=== PATIENT | male | born 1960 | race Caucasian/White ===

== ENCOUNTER → 2016-11-25 | Outpatient (CLI) | payer OTHER ==
[~2016-11-25] MED LIST: ATV/1 PO; ATV5 PO; CALC-354 PO; CALC625T PO; CAPE1TAB3 PO; CARB200T PO; CARB200T3 PO; CHEMO INJ; CHOL100010 PO; CHOL200010 PO; CLIN1LOT5 TOP; CMD3 PO; CMD4 PO; CMD6 PO; DOCU-94 PO; DOXY100T PO; HYDR-5688 PO; KPP/1000 PO; LACT10SO17 PO; LAMO200T PO; LAMO200T38 PO; LAMO25TA PO; LEVE500T13 PO; LEVE500T26 PO; LORA-741 PO; MORP20SO PO; MRPL PO; MULT-506 PO; OPTIRAY 320 IV PRN; POTA10LI12 PO; PROC1TAB5 PO; PTDOPS OP; PTDOPS OPB; RISP1TAB68 PO; RISP2TAB22 PO; RISP2TAB3 PO; SENN-58 PO; SENN-61 PO; SENN1TAB77 PO; SENN8.6T36 PO; VITACAP37; WARF2TAB PO; ZONI100C2 PO; ZONI100C39 PO
--- NOTE | 2016-11-25 13:44 | DIAGNOSTIC IMAGING REPORT ---
CT OF THE CHEST WITH IV CONTRAST CLINICAL HISTORY: Colon carcinoma. COMPARISON STUDY: 06/23/2016 TECHNIQUE: Following the IV administration of mL of Optiray-320, CT of the thorax was performed from the thoracic inlet to the lung bases. Images are reviewed in the axial, sagittal, and coronal planes. IV contrast was administered without complication. CT DOSE: 1362.91 mGycm FINDINGS: Thyroid: Imaged portions of the thyroid gland are normal in appearance. Thoracic aorta: There is a left aortic arch with an apparent right subclavian artery. Pulmonary vasculature: The pulmonary trunk is normal in caliber. There are no central filling defects identified to suggest pulmonary embolus. Note that this examination was not protocoled for the evaluation of pulmonary emboli. HEART: The heart is normal in size and configuration, without pericardial effusion. Lungs and pleural spaces: There are very small bilateral pleural effusions right greater than left. There is persistent thickening of the bronchovascular bundles bilaterally. There is bilateral interstitial thickening. There is no lobar consolidation. Mediastinum: Borderline enlarged mediastinal lymph nodes appear slightly smaller than on the preceding study. Shanta: Hilar lymph nodes are at the upper limits of normal in size Axilla: Clear. Upper abdomen: There is a 7 mm right renal calculus. There is bilateral gynecomastia. Skeletal structures: There are no lytic or blastic osseous lesions. IMPRESSION: 1. Persistent thickening of the bronchovascular bundles, and very small bilateral pleural effusions. Bronchovascular bundle thickening is often seen in pulmonary interstitial edema as well as sarcoidosis. It has also been described in pneumonitis, microscopic polyangiitis, and lymphangitic carcinomatosis. 2. Left aortic arch with an apparent right subclavian 3. 7 mm right renal calculus 4. Borderline enlarged mediastinal lymph nodes Electronically signed by: Ulysses Wang M.D. 11/25/2016 1:43 PM Dictated Date/Time: 11/25/2016 1:34 PM
--- NOTE | 2016-11-25 15:25 | DIAGNOSTIC IMAGING REPORT ---
CT OF THE ABDOMEN AND PELVIS WITH CONTRAST CLINICAL HISTORY: Colon cancer. COMPARISON STUDY: CT of the abdomen and pelvis June 23, 2016. TECHNIQUE: Following IV administration of 119 mL of Optiray-320, axial images of the abdomen and pelvis were obtained from the lung bases to the proximal femurs. Images were reviewed in the axial, sagittal, and coronal planes. IV contrast was administered without complication. Oral contrast was administered. FINDINGS: The chest will be reported separately. The liver, spleen, adrenal glands and pancreas are normal. There is no hydronephrosis. There is a 5 mm right renal calculus. A few subcentimeter left renal lesions are too small to characterize but are likely benign. There is no evidence for a bowel obstruction status post right hemicolectomy. A 1.3 cm hypodensity with mild peripheral enhancement superior to the ileocolic anastomosis is likely postsurgical. No enlarged abdominal or pelvic lymph nodes are present. Small mesenteric lymph nodes are noted. These are probably benign. There is a large amount of stool within the colon and rectum. There is a new 1.5 cm partially sclerotic lesion within the left posterior aspect of the T9 vertebral body. There is also a new new area of sclerosis within the S1 vertebral body that measures approximately 2.4 cm. IMPRESSION: 1. Interval development of sclerotic lesions within the T9 and S1 vertebral bodies which are highly suggestive of skeletal metastases. 2. Status post right hemicolectomy. No evidence for bowel obstruction. 1.3 cm hypodensity adjacent to the ileocolic anastomosis is likely postsurgical. 3. Small mesenteric lymph nodes which are likely benign but should be assessed on subsequent exams. 4. Large amount stool within the colon and rectum. Electronically signed by: Darin Maldonado M.D. 11/25/2016 3:23 PM Dictated Date/Time: 11/25/2016 1:36 PM
== END | disposition home or self-care (01) ==
LOC: C.CTS 12:53
PROVIDERS: ATTEND Internal Medicine Hematology & Oncology
DX: C18.4 Malignant neoplasm of transverse colon (principal); M89.9 Disorder of bone, unspecified; I88.0 Nonspecific mesenteric lymphadenitis; K59.00 Constipation, unspecified; R91.8 Other nonspecific abnormal finding of lung field; J90 Pleural effusion, not elsewhere classified; N20.0 Calculus of kidney

== ENCOUNTER 2017-01-04 08:54 | Day surgery (SDC) | payer OTHER ==
[2016-12-23 11:00] VITALS: BMI 21.0
[~2017-01-04] VITALS: Ht 165.1 cm; Wt 59.1 kg
[2017-01-04] VITALS (7 sets, daily range): BP systolic 108–126; BP diastolic 68–85; PULSE 76–86; TEMP 36–36.6; O2SAT 90–98; Ht 165.1 cm; Wt 59.1 kg
--- NOTE | 2017-01-04 08:20 | History and Physical ---
History & Physical Date Jan 04, 2017. History of Present Illness The patient is a 56 year old male with h/o metastatic colon Ca- in need of chemotherapy for access port. Pt sees Dr Jasmine. h/o mental retardation Past Medical/Surgical History Medical Problems: (1) Colon cancer (2) Mental retardation (3) Seizure disorder Surgical Problems: (1) S/P colectomy Additional History Endocrine Disorder: No Kidney Disease: No Allergies Coded Allergies: Ragweed (Verified Allergy, Mild, SEASONAL ALLERGY, 12/23/16) [place] Tree (Verified Allergy, Mild, SEASONAL ALLERGY, 12/23/16) Azithromycin (Verified Allergy, Unknown, INTERACTS WITH TEGRETOL LEVELS, ) Propranolol (Verified Allergy, Unknown, REACTION OF IMMOBILITY, 12/23/16) Home Medications Scheduled Calcium Carbonate-Cholecalcife (Caltrate 600+D), 2 TABS PO QAM Calcium Polycarbophil (Fibercon), 1 CAP PO BID Carbamazepine (Tegretol), 200 MG PO BID Cholecalciferol (Vitamin D), 2,000 INTER.UNIT PO QAM Lamotrigine (Lamictal), 200 MG PO TID Lamotrigine (Lamictal), 25 MG PO AMHS Levetiracetam (Keppra), 1,250 MG PO BID Lorazepam (Ativan *), 0.5 MG PO QD@16 Lorazepam (Ativan), 1 MG PO HS Multivitamin (Multivitamin), 1 TAB PO QAM Olopatadine Hydrochloride (Pataday), 1 DROP OPB DAILY Risperidone (Risperdal), 2 MG PO QAM Risperidone (Risperdal), 1 MG PO HS Sennosides-Docusate Sodium (Yelitza-Colace), 1 TAB PO BID Vitamin E (E-400), 400 UNITS BID Warfarin Sod (Coumadin), 4 MG PO S,T,W,T,SA Warfarin Sod (Coumadin), 6 MG PO M, F Zonisamide (Zonegran), 200 MG PO HS Physical Examination Skin: warm/dry Eyes: sclerae normal Neck: supple Respiratory/Chest: no respiratory distress Cardiovascular: regular rate, rhythm Abdomen / GI: non tender Extremities: normal inspection Neurologic/Psych: alert (pt does not speak much) Diagnosis metastatic colon Ca for port placement Plan of Treatment Access port placement will likely need general anesthesia- LMA
[~2017-01-04 08:54] MED LIST changes: -CAPE1TAB3 PO; -CARB200T3 PO; -CHEMO INJ; -CHOL200010 PO; -CLIN1LOT5 TOP; -CMD3 PO; -DOCU-94 PO; -DOXY100T PO; +FENTANYL CITRATE INJ 50 MCG/1 ML 2 ML VIAL ONE; -HYDR-5688 PO; -KPP/1000 PO; -LACT10SO17 PO; +LACTATED RINGER'S 1000ML 1,000 ML IV SCH; -LAMO200T PO; -LEVE500T13 PO; -LORA-741 PO; +MIDAZOLAM HCL 1 MG/ML 2ML VIAL ONE; -MORP20SO PO; -MRPL PO; -OPTIRAY 320 IV PRN; -POTA10LI12 PO; -PROC1TAB5 PO; -PTDOPS OP; -RISP2TAB22 PO; -SENN-61 PO; -SENN1TAB77 PO; -SENN8.6T36 PO; -WARF2TAB PO; -ZONI100C2 PO
[2017-01-04 09:36] LABS: HEMATOCRIT 38.3 % (42-52); MEAN CELL VOLUME 92.7 fL (80-100); MEAN CORPUSCULAR HEMOGLOBIN 31.2 pg (25-34); MEAN PLATELET VOLUME 9.6 fL (7.4-10.4); PLATELET COUNT 316 K/uL (130-400); RED BLOOD COUNT 4.13 M/uL (4.7-6.1)
[2017-01-04 09:41] LABS: MEAN CORPUSCULAR HGB CONC 33.7 g/dl (32-36)
[2017-01-04 09:57] LABS: INR 1.1 (0.9-1.1); PARTIAL THROMBOPLASTIN RATIO 1.1; PROTHROMBIN TIME (PATIENT) 11.4 SECONDS (9.0-12.0)
[2017-01-04] MEDS ORDERED: LIDOCAINE HCL 1% 20 ML VIAL ONE (10:39)
[2017-01-04] MEDS ORDERED: CEFAZOLIN SOD 1 GM VIAL ONE ×2 (10:39→11:12)
[2017-01-04] MEDS ORDERED: HEPARIN SOD (PORCINE) 1000 UNIT/ML 10 ML VIAL ONE (10:39)
[2017-01-04] MEDS ORDERED: EpHEDrine SULFATE INJ 50 MG/ML AMP ONE (11:12)
[2017-01-04] MEDS ORDERED: LIDOCAINE HCL 2% 2 ML VIAL (20MG/ML) ONE (11:12)
[2017-01-04] MEDS ORDERED: ONDANSETRON INJ 2 MG/ML 2 ML VIAL ONE (11:12)
[2017-01-04] MEDS ORDERED: DEXAMETHASONE SOD INJ 4 MG/ML VIAL ONE (11:12)
[2017-01-04] MEDS ORDERED: SUCCINYLCHOLINE CHLORIDE 20 MG/ML 10 ML VIAL IV ONE (11:12)
[2017-01-04] MEDS ORDERED: PROPOFOL IV EMULSION 10 MG/ML 20 ML VIAL IV ONE ×5 (11:12→11:23)
[2017-01-04] MEDS ORDERED: ROCURONIUM BROMIDE 10 MG/ML 5 ML VIAL ONE (11:12)
[2017-01-04] MEDS ORDERED: ATROPINE SULFATE 0.1 MG/ML 5ML SYR IV PRN (11:30)
[2017-01-04] MEDS ORDERED: EpHEDrine SULFATE INJ 50 MG/ML AMP IV PRN (11:30)
[2017-01-04] MEDS ORDERED: LACTATED RINGER'S 1000ML 1,000 ML IV SCH (11:42)
[2017-01-04] MEDS ORDERED: HYDR-5688 PO (11:45)
[2017-01-04] MEDS ORDERED: HYDROCODONE/ACETAMOPHEN 5/325MG TAB PO PRN ×3 (11:45→12:00)
[2017-01-04] MEDS ORDERED: MoRPHine SULFATE 2 MG/ML CARP IV PRN (11:45)
[2017-01-04] MEDS ORDERED: ONDANSETRON INJ 2 MG/ML 2 ML VIAL IV PRN ×2 (11:45→12:00)
--- NOTE | 2017-01-04 11:47 | Discharge Instructions ---
Discharge Instructions Visit Reason for Visit: Colon Cancer Discharge Discharge Diagnosis / Problem: A-port placement Activity Recommendations Shower/Bathe: tomorrow Anesthesia . Post Anesthesia Instructions: If you have had General Anesthesia or IV Sedation: * Do not drive today. * Resume driving when surgeon permits. * Do not make important decisions or sign legal documents today. * Call surgeon for: 1. Temperature elevations greater than 101 degrees F. 2. Uncontrollable pain. 3. Excessive bleeding. 4. Persistent nausea and vomiting. 5. Medication intolerance (nausea, vomiting or rash). * For nausea and vomiting use only clear liquids such as: tea, soda, bouillon until nausea subsides, then gradually increase diet as tolerated. * If you have any concerns or questions, call your surgeon's office. If physician is unavailable and it is an emergency, call 911 or go to the nearest emergency room. . Instructions / Follow-Up Instructions / Follow-Up Dr. Giraldo's office in 2 weeks for suture removal restart coumadin on Wednesday Diet Recommendations Recommended Home Diet: no limitations Procedures Procedures Performed: Insertion of A-Port Left Sub Clavian Pending Studies Studies pending at discharge: no Medical Emergencies . Who to Call and When: Medical Emergencies: If at any time you feel your situation is an emergency, please call 911 immediately. . Non-Emergent Contact Non-Emergency issues call your: Surgeon Call Non-Emergent contact if: you have a fever, temperature is above 101.5, your pain is not controlled, wound has increased redness . . "Provider Documentation" section prepared by Isaac Kemp.
--- NOTE | 2017-01-04 11:48 | [facility] Post Operative Brief Note ---
Immediate Operative Summary Operative Date Jan 04, 2017. Pre-Operative Diagnosis Metastatic Colon Cancer Post-Operative Diagnosis Same as preoperative. Procedure(s) Performed Insertion of A-Port Left Sub Clavian Surgeon Licensed Psychologist Surgeon(s) none Estimated Blood Loss 5 cc Findings placed via Lt subclavian vein Specimens None per surgeon Anesthesia gen Complication(s) None Disposition Recovery Room / PACU
--- NOTE | 2017-01-04 12:11 | OPERATIVE REPORT ---
DATE OF OPERATION: 01/04/2017 NAME OF OPERATION: Port placement. PREOPERATIVE DIAGNOSIS: Metastatic colon cancer. POSTOPERATIVE DIAGNOSIS: Same. STAFF SURGEON: Dr. Fabián Giraldo. ANESTHESIA: General anesthetic. DESCRIPTION OF PROCEDURE: The patient was brought into the operating room and placed on the operating table in the supine position. After appropriate general anesthetic, a roll was placed between shoulders. His chest was prepped and draped in the usual fashion. 0.5% plain Marcaine was used to anesthetize the skin and scrubbed the subcutaneous tissue. Incision made over the deltopectoral groove on the left side, carrying dissection down and identifying a very small cephalic vein. I was unable to pass the catheter into the subclavian vein from this. Therefore, the cephalic vein was ligated. The patient was placed in Trendelenburg position and then using a puncture technique, the left subclavian vein was localized. A wire passed under fluoroscopy. The dilator and an introducer passed over the wire under fluoroscopy. The dilator and wire removed. Catheter passed through the introducer down into the proximal superior vena cava and then the catheter was aspirated and flushed with heparinized solution. A pocket was fashioned in the chest wall. The port was attached to the catheter, placed into the pocket and secured to the chest wall using 3-0 Prolene suture. The port had been aspirated and flushed with heparinized solution. Subcutaneous tissue was reapproximated using 2-0 chromic catgut suture and then the skin reapproximated using 4-0 nylon suture. The patient was transferred to recovery room in stable condition. I attest to the content of the Intraoperative Record and any orders documented therein. Any exceptio ns are noted below.
--- NOTE | 2017-01-04 12:32 | DIAGNOSTIC IMAGING REPORT ---
CHEST ONE VIEW PORTABLE CLINICAL HISTORY: port placement COMPARISON STUDY: 08/26/2016, CT scan of the chest dated 11/25/2016 FINDINGS: The heart is at the upper limits of normal in size. There are progressive bilateral interstitial pulmonary opacities, consistent with a pulmonary edema pattern. There is been interval placement of a left sided A-Port catheter. The tip projects at the superior vena cava. There is no pneumothorax. More focal left basilar airspace opacities, likely reflect focal edema.[ IMPRESSION: Progressive interstitial pulmonary edema pattern. This finding was described on the prior CT scan dated 11/25/2016. Diagnostic considerations remain similar. Electronically signed by: Ulysses Wang M.D. 01/04/2017 12:31 PM Dictated Date/Time: 01/04/2017 12:28 PM
--- NOTE | 2017-01-04 13:25 | Anesthesiology Progress Note ---
Anesthesia Post Op Note Date & Time Jan 04, 2017 at 13:25 Vital Signs Pain Intensity: 0 Vital Signs Past 12 Hours Date Time Temp Pulse Resp B/P Pulse Ox O2 Delivery O2 Flow Rate FiO2 01/04/17 13:15 96 Nasal Cannula 1 01/04/17 13:00 36.6 86 18 114/79 92 Nasal Cannula 2 01/04/17 12:32 36.2 82 18 126/75 98 Nasal Cannula 2 01/04/17 12:25 36.5 79 20 125/74 96 Nasal Cannula 2 01/04/17 12:15 36.5 82 16 128/76 96 Nasal Cannula 2 01/04/17 12:05 79 16 131/76 96 Mask 10 01/04/17 11:55 84 16 131/75 95 Mask 10 01/04/17 11:49 36.5 83 16 130/75 95 Mask 10 01/04/17 09:15 36.6 84 22 108/81 94 Room Air Notes Mental Status: alert / awake / arousable, participated in evaluation Pt Amnestic to Procedure: Yes Nausea / Vomiting: adequately controlled Pain: adequately controlled Airway Patency, RR, SpO2: stable & adequate BP & HR: stable & adequate Hydration State: stable & adequate Anesthetic Complications: no major complications apparent
--- NOTE | 2017-01-04 16:09 | DIAGNOSTIC IMAGING REPORT ---
Chest 2 views CLINICAL HISTORY: PORT INSERTION COMPARISON STUDY: Chest x-ray 08/26/2016. FINDINGS: 2 intraoperative fluoroscopic spot images of the chest were submitted. Images demonstrate an endotracheal tube within the mid trachea and a left subclavian Port-A-Cath which terminates near the superior cavoatrial junction. Total fluoroscopy time was 28 seconds. IMPRESSION: Fluoroscopy provided for left subclavian Port-A-Cath insertion. Electronically signed by: Cam Bang M.D. 01/04/2017 4:07 PM Dictated Date/Time: 01/04/2017 4:03 PM
[2017-04-21] MEDS ORDERED: DOCU-94 PO (08:49)
[2017-04-21] MEDS ORDERED: CHEMO INJ (08:49)
[2017-04-21] MEDS ORDERED: SENN8.6T36 PO (08:49)
[2017-04-21] MEDS ORDERED: CHOL200010 PO (08:49)
[2017-04-21] MEDS ORDERED: SENN-61 PO (08:49)
[2017-04-21] MEDS ORDERED: LEVE500T13 PO ×2 (08:49)
[2017-04-21] MEDS ORDERED: LACT10SO17 PO (08:49)
[2017-04-21] MEDS ORDERED: WARF2TAB PO (08:49)
[2017-04-21] MEDS ORDERED: LORA-741 PO (08:49)
== END 2017-01-04 14:12 | disposition home or self-care (01) ==
LOC: C.ACU 08:54
PROVIDERS: ATTEND Surgery
DX: C18.4 Malignant neoplasm of transverse colon (principal); G40.909 Epilepsy, unspecified, not intractable, without status epilepticus; F79 Unspecified intellectual disabilities

== ENCOUNTER 2017-03-04 15:37 | Emergency (ER) | payer OTHER ==
[~2017-03-04] VITALS: Ht 170.2 cm; Wt 67.3 kg
[~2017-03-04 15:37] MED LIST changes: -FENTANYL CITRATE INJ 50 MCG/1 ML 2 ML VIAL ONE; +HYDR-5688 PO; -LACTATED RINGER'S 1000ML 1,000 ML IV SCH; -MIDAZOLAM HCL 1 MG/ML 2ML VIAL ONE
[2017-03-04 15:58] VITALS: TEMP 36.1; Ht 170.2 cm; Wt 67.3 kg
--- NOTE | 2017-03-04 16:14 | EMERGENCY ROOM VISIT NOTE ---
History Report prepared by Magalie: Hillary Klein Under the Supervision of: Dr. Ish Lara M.D. First contact with patient: 15:56 Chief Complaint: BACK PAIN Stated Complaint: BACK PAIN History of Present Illness The patient is a 56 year old male who presents to the Emergency Room with complaints of persistent back pain that began three weeks ago. The patient's caregiver notes that the patient has a history of stage IV metastatic colon cancer to his spine. She notes that the patient's alkaline phosphatase level continues to rise, which has his providers believing that the cancer is growing. The patient's caregiver notes that the patient is nonverbal, but has been showing signs of increased pain. She states that the patient has been switching positions constantly with sleep and has had decreased sleep due to difficulty getting comfortable. The patient's caregiver notes that the patient has had a loss of appetite recently. She states that the patient went a few days last week without eating anything. The patient's caregiver notes that the patient has been eating daily this week. She states that the patient's oncologist has continued treat the patient's cancer with chemotherapy every Wednesday. The patient's caregiver denies any conversation regarding Hospice. She notes that the patient has been unsteady on his feet. The patient's caregiver states that they were referred to the emergency department for further evaluation by the patient's oncologist. She notes that the patient has a history of a lobectomy in a [place] several years ago. Source of History: patient Onset: three weeks ago Position: back Timing: other (persistent) Note: Associated Symptoms: difficulty sleeping due to pain, loss of appetite. Review of Systems See HPI for pertinent positives & negatives. A total of 10 systems reviewed and were otherwise negative. Past Medical & Surgical Medical Problems: (1) Colon cancer (2) Mental retardation (3) Seizure disorder Surgical Problems: (1) S/P colectomy Family History Patient reports no known family medical history. Social History Smoking Status: Never Smoker Alcohol Use: none Drug Use: none Housing Status: other Occupation Status: disabled Current/Historical Medications Scheduled Calcium Carbonate-Cholecalcife (Caltrate 600+D), 2 TABS PO QAM Calcium Polycarbophil (Fibercon), 1 CAP PO BID Carbamazepine (Tegretol), 200 MG PO BID Cholecalciferol (Vitamin D), 2,000 INTER.UNIT PO QAM Lamotrigine (Lamictal), 200 MG PO TID Lamotrigine (Lamictal), 25 MG PO BID Levetiracetam (Keppra), 1,250 MG PO BID Lorazepam (Ativan *), 0.5 MG PO QD@16 Lorazepam (Ativan), 1 MG PO HS Multivitamin (Multivitamin), 1 TAB PO QAM Olopatadine Hydrochloride (Pataday), 1 DROP OPB DAILY Risperidone (Risperdal), 2 MG PO QAM Risperidone (Risperdal), 1 MG PO HS Sennosides-Docusate Sodium (Yelitza-Colace), 1 TAB PO BID Vitamin E (E-400), 400 UNITS BID Warfarin Sod (Coumadin), 4 MG PO S,T,W,T,SA Warfarin Sod (Coumadin), 6 MG PO M, F Zonisamide (Zonegran), 200 MG PO HS Scheduled PRN Morphine Sulfate (Morphine Sulfate), 10 MG PO Q6H PRN for Pain Allergies Coded Allergies: Ragweed (Verified Allergy, Mild, SEASONAL ALLERGY, 03/04/17) [place] Tree (Verified Allergy, Mild, SEASONAL ALLERGY, 03/04/17) Azithromycin (Verified Allergy, Unknown, INTERACTS WITH TEGRETOL LEVELS, ) Propranolol (Verified Allergy, Unknown, REACTION OF IMMOBILITY, 03/04/17) Physical Exam Vital Signs Date Time Temp Pulse Resp B/P Pulse Ox O2 Delivery O2 Flow Rate FiO2 03/04/17 18:31 68 20 121/79 98 Room Air 03/04/17 17:40 66 16 128/91 98 Room Air 03/04/17 16:03 71 03/04/17 15:58 36.1 80 16 133/83 96 Room Air Physical Exam GENERAL: Patient is chronically unwell appearing, no distress. HEENT: Extensive anterior skull surgery, mucous membranes moist, no nasal congestion, no scleral icterus. NECK: No stridor, no adenopathy, no meningismus, trachea is midline. LUNGS: No dyspnea. Clear to auscultation and equal bilaterally. No wheeze, no rhonchi. HEART: Regular rate and rhythm. No murmurs, rubs, gallops appreciated. ABDOMEN: Soft, nontender, bowel sounds positive, no masses appreciated, no peritonitis. BACK: No midline tenderness, no CVA tenderness EXTREMITIES: Normal motion all extremities, no cyanosis, no edema. NEUROLOGIC: Patient is nonverbal, periodically staring around room. Moves all extremities weakly. SKIN: No rash, no jaundice, no diaphoresis. Medical Decision & Procedures Laboratory Results 03/04/17 17:39 Red Blood Count 3.64, Mean Corpuscular Volume 90.9, Mean Corpuscular Hemoglobin 29.7, Mean Corpuscular Hemoglobin Concent 32.6, Mean Platelet Volume 9.2, Neutrophils (%) (Auto) 43.4, Lymphocytes (%) (Auto) 46.4, Monocytes (%) (Auto) 7.8, Eosinophils (%) (Auto) 1.8, Basophils (%) (Auto) 0.3, Neutrophils # (Auto) 1.44, Lymphocytes # (Auto) 1.54, Monocytes # (Auto) 0.26, Eosinophils # (Auto) 0.06, Basophils # (Auto) 0.01 03/04/17 16:40 Test 03/04/17 16:40 03/04/17 17:39 Anion Gap 4.0 mmol/L (3-11) Est Creatinine Clear Calc Drug Dose 98.7 ml/min Estimated GFR () 117.4 Estimated GFR (Non- 101.3 BUN/Creatinine Ratio 20.5 (10-20) Calcium Level 8.8 mg/dl (8.5-10.1) White Blood Count 3.32 K/uL (4.8-10.8) Red Blood Count 3.64 M/uL (4.7-6.1) Hemoglobin 10.8 g/dL (14.0-18.0) Hematocrit 33.1 % (42-52) Mean Corpuscular Volume 90.9 fL (80-100) Mean Corpuscular Hemoglobin 29.7 pg (25-34) Mean Corpuscular Hemoglobin Concent 32.6 g/dl (32-36) Platelet Count 221 K/uL (130-400) Mean Platelet Volume 9.2 fL (7.4-10.4) Neutrophils (%) (Auto) 43.4 % Lymphocytes (%) (Auto) 46.4 % Monocytes (%) (Auto) 7.8 % Eosinophils (%) (Auto) 1.8 % Basophils (%) (Auto) 0.3 % Neutrophils # (Auto) 1.44 K/uL (1.4-6.5) Lymphocytes # (Auto) 1.54 K/uL (1.2-3.4) Monocytes # (Auto) 0.26 K/uL (0.11-0.59) Eosinophils # (Auto) 0.06 K/uL (0-0.5) Basophils # (Auto) 0.01 K/uL (0-0.2) RDW Standard Deviation 66.3 fL (36.4-46.3) RDW Coefficient of Variation 19.9 % (11.5-14.5) Immature Granulocyte % (Auto) 0.3 % Immature Granulocyte # (Auto) 0.01 K/uL (0.00-0.02) Laboratory results as reviewed by me. Medications Administered Medications (Trade) Dose Ordered Sig/Peyton Route Start Time Stop Time Status Last Admin Dose Admin Sodium Chloride (Nss 1000ml) 1,000 ml @ 999 mls/hr Q1H1M STAT IV 03/04/17 16:17 03/04/17 17:17 DC 03/04/17 16:17 999 MLS/HR Oxycodone HCl (Roxicodone Immediate Rel 5MG Home Pack) 1 homepack UD ONCE PO 03/04/17 18:00 03/04/17 18:01 DC 03/04/17 18:31 1 HOMEPACK Heparin Sodium (Porcine) (Heparin 100 Unit/ml 5ml Flush) 5 ml STK-MED ONCE .ROUTE 03/04/17 18:40 03/04/17 18:41 DC 03/04/17 18:40 5 ML ED Course 1557: The patient was evaluated in room B6. A complete history and physical exam was performed. 1615: I discussed the patients case with Dr. Mendosa, Oncology. He agrees with the treatment plan. 1617: Ordered Sodium Chloride 1000 ml @ 999 mls/hr IV. 1733: I reevaluated the patient and he is happy and smiling. 1800: The patient was discharged back to his assisted living facility. The caregivers are in agreement with the treatment plan. Medical Decision Differential: Sepsis, Infectious (UTI/Pneumonia/Meningitis/etc), Metabolic/ Electrolyte Abnormality, Cardiac, Hepatic, Endocrine, Toxicologic, Neurologic, amongst other pathologies entertained. 56 yr old male with previous lobotomy who has known metastatic colon CA and is receiving weekly chemo arrives for evaluation of pain (mostly at nights) and poor appetite last week. He was given IV fluids and did seem to perk up some and in no distress. Labs essentially unremarkable other than some mild anemia which is near his baseline. Will send home with Oxy IR as clearly Tyl #3 not working, and will get Rx for Morphine soln. He is not septic, has no abdominal TTP and per his urgent care nurse practitioner is at his baseline and currently in no distress. I did discuss case with Onc who is aware and agree with plan of continued outpatient care. Consults Time Called: 1600 Consulting Physician: Dr. Mendosa, Oncology Returned Call: 1615 I discussed the patients case with Dr. Mendosa, Oncology. He agrees with the treatment plan. Impression Primary Impression: Cancer associated pain Additional Impression: Anemia Scribe Attestation The scribe's documentation has been prepared under my direction and personally reviewed by me in its entirety. I confirm that the note above accurately reflects all work, treatment, procedures, and medical decision making performed by me. Departure Information Dispostion Home / Self-Care Prescriptions Morphine Sulfate (Morphine Sulfate) 20 Mg/1 Ml Soln 10 MG PO Q6H Y for Pain, #20 ML Prov: Ish Lara M.D. 03/04/17 Referrals Saundra Camarillo DO (PCP) Patient Instructions My [facility] Additional Instructions Please follow up with Oncologist as outpatient. Return if vomiting, passing out, fevers, worsening pain or other concerns. Morphine Soln: Use 0.5ml by mouth or in food every 6 hours as needed for pain. This is a controlled narcotic medication. Oxy IR 5mg Tab: Crush and place in food. On tablet every 6 hours as need for pain and before bed. Problem Qualifiers Additional Impression: Anemia Anemia type: unspecified type Qualified Codes: D64.9 - Anemia, unspecified
[2017-03-04] MEDS ORDERED: SODIUM CHLORIDE 0.9% 1000ML 1,000 ML IV STA (16:17)
[2017-03-04 17:22] LABS: BUN/CREATININE RATIO 20.5 (10-20); CALCIUM 8.8 mg/dl (8.5-10.1); CREATININE 0.8 mg/dl (0.60-1.40); POTASSIUM 3.7 mmol/L (3.5-5.1)
[2017-03-04 17:46] LABS: BASO % 0.3 %; BASO ABS # 0.01 K/uL (0-0.2); COMPLETE YES; EOS % 1.8 %; HEMATOCRIT 33.1 % (42-52); IG% 0.3 %; LYMPH % 46.4 %; LYMPH ABS # 1.54 K/uL (1.2-3.4); MEAN CELL VOLUME 90.9 fL (80-100); MEAN CORPUSCULAR HEMOGLOBIN 29.7 pg (25-34); MEAN CORPUSCULAR HGB CONC 32.6 g/dl (32-36); MEAN PLATELET VOLUME 9.2 fL (7.4-10.4); MONO % 7.8 %; NEUT % 43.4 %; PLATELET COUNT 221 K/uL (130-400); RED BLOOD COUNT 3.64 M/uL (4.7-6.1); WHITE BLOOD COUNT 3.32 K/uL (4.8-10.8)
[2017-03-04] MEDS ORDERED: MRPL PO (17:53)
[2017-03-04] MEDS ORDERED: OXYCODONE IR HOME PACK PO ONE (18:00)
[2017-03-04 18:31] VITALS: BP 121/79; PULSE 68; O2SAT 98
[2017-04-21] MEDS ORDERED: LEVE500T13 PO ×2 (08:49)
[2017-04-21] MEDS ORDERED: WARF2TAB PO (08:49)
[2017-04-21] MEDS ORDERED: LACT10SO17 PO (08:49)
[2017-04-21] MEDS ORDERED: LORA-741 PO (08:49)
[2017-04-21] MEDS ORDERED: CHOL200010 PO (08:49)
[2017-04-21] MEDS ORDERED: SENN-61 PO (08:49)
[2017-04-21] MEDS ORDERED: CHEMO INJ (08:49)
[2017-04-21] MEDS ORDERED: SENN8.6T36 PO (08:49)
[2017-04-21] MEDS ORDERED: DOCU-94 PO (08:49)
== END 2017-03-04 18:40 | disposition home or self-care (01) ==
LOC: EDBD 15:37 → C.EDB 15:41
DX: G89.3 Neoplasm related pain (acute) (chronic) (principal); D64.9 Anemia, unspecified; C18.9 Malignant neoplasm of colon, unspecified; C79.51 Secondary malignant neoplasm of bone; F79 Unspecified intellectual disabilities; G40.909 Epilepsy, unspecified, not intractable, without status epilepticus; Z79.899 Other long term (current) drug therapy; Z79.01 Long term (current) use of anticoagulants

== ENCOUNTER → 2017-03-25 | Outpatient (CLI) | payer OTHER ==
[~2017-03-25] MED LIST changes: +CARB200T3 PO; +CHEMO INJ; +CHOL200010 PO; +CLIN1LOT5 TOP; +DOCU-94 PO; +DOXY100T PO; -HYDR-5688 PO; +LACT10SO17 PO; +LAMO200T PO; +LEVE500T13 PO; +LORA-741 PO; +MORP20SO PO; +MRPL PO; +POTA10LI12 PO; +PTDOPS OP; +RISP2TAB22 PO; +SENN-61 PO; +SENN1TAB77 PO; +SENN8.6T36 PO; +WARF2TAB PO; +ZONI100C2 PO
--- NOTE | 2017-03-25 13:32 | DIAGNOSTIC IMAGING REPORT ---
BONE SCAN WHOLE BODY CLINICAL HISTORY: COLON CA C18.4 COMPARISON STUDY: CT scan dated 11/25/2016 FINDINGS: The patient was injected with 26.4 mCi of technetium 99m MDP. Three-hour delayed camera images of the chest abdomen pelvis and proximal lower legs were acquired. There are multiple foci of abnormal increased uptake involving the calvarium, multiple thoracic and lumbar vertebral bodies, multiple ribs, as well as the bony pelvis. The appearance is consistent with widespread skeletal metastasis. IMPRESSION: Multiple foci of abnormal increased activity in a distribution consistent with widespread skeletal metastasis Electronically signed by: Ulysses Wang M.D. 03/25/2017 1:30 PM Dictated Date/Time: 03/25/2017 1:28 PM
== END | disposition home or self-care (01) ==
LOC: C.NUCL 09:46
PROVIDERS: ATTEND Internal Medicine Hematology & Oncology
DX: C18.4 Malignant neoplasm of transverse colon (principal); R93.7 Abnormal findings on diagnostic imaging of other parts of musculoskeletal system

== ENCOUNTER 2017-05-01 19:05 | Emergency (ER) | payer OTHER ==
[~2017-05-01] VITALS: Ht 167.6 cm; Wt 61.6 kg
[2017-05-01 19:05] VITALS: TEMP 37.9; Ht 167.6 cm; Wt 61.6 kg
[~2017-05-01 19:05] MED LIST changes: -ATV5 PO; -CARB200T3 PO; -CHOL100010 PO; -CLIN1LOT5 TOP; -CMD6 PO; -DOXY100T PO; -LAMO200T PO; -LEVE500T26 PO; -MORP20SO PO; -POTA10LI12 PO; -PTDOPS OP; -RISP2TAB22 PO; -SENN-58 PO; -SENN1TAB77 PO; -ZONI100C2 PO
[2017-05-01] MEDS ORDERED: SODIUM CHLORIDE 0.9% 1000ML 1,000 ML IV STA (19:18)
[2017-05-01] MEDS ORDERED: ONDANSETRON INJ 2 MG/ML 2 ML VIAL IV STA (19:18)
[2017-05-01 19:40] LABS: MEAN CELL VOLUME 93.6 fL (80-100); MEAN CORPUSCULAR HGB CONC 34.1 g/dl (32-36); MEAN PLATELET VOLUME 9.7 fL (7.4-10.4); PLATELET COUNT 242 K/uL (130-400); RED BLOOD COUNT 4.38 M/uL (4.7-6.1); WHITE BLOOD COUNT 3.54 K/uL (4.8-10.8)
[2017-05-01] MEDS ORDERED: CLIN1LOT5 TOP (19:45)
[2017-05-01] MEDS ORDERED: DOXY100T PO (19:45)
[2017-05-01 19:55] LABS: BUN/CREATININE RATIO 17.4 (10-20); CALCIUM 8.4 mg/dl (8.5-10.1); CREATININE 1.1 mg/dl (0.60-1.40); POTASSIUM 3.3 mmol/L (3.5-5.1)
[2017-05-01 20:11] LABS: ANISOCYTOSIS PRESENT; BASO % 0.6 %; BASO ABS # 0.02 K/uL (0-0.2); COMPLETE YES; EOS % 1.7 %; LYMPH % 28.5 %; LYMPH ABS # 1.01 K/uL (1.2-3.4); MONO % 15.3 %; NEUT % 53.9 %
[2017-05-01] MEDS ORDERED: POTASSIUM CHLORIDE 10 MEQ TABCR PO STA (20:20)
[2017-05-01 20:44] VITALS: BP 136/93; PULSE 105; O2SAT 96
--- NOTE | 2017-05-01 21:53 | EMERGENCY ROOM VISIT NOTE ---
History Report prepared by Magalie: Janeen Solis Under the Supervision of: Dr. Barrett Lawson M.D. First contact with patient: 19:12 Stated Complaint: DIARRHEA, VOMITING, DEHYDRATION History of Present Illness The patient is a 56 year old male who presents to the Emergency Room with complaints of intermittent diarrhea beginning earlier today. The patient resides at a skilled facility and presents with his healthcare financial analyst at the bedside. She states that he had an episode of diarrhea this morning. Around 4:15pm he started vomiting, and since that time he has had 2 episodes of vomiting and 4 more episodes of diarrhea. She denies any hematochezia or melena. The patient is currently being treated for colon cancer and receiving chemotherapy treatments. He received morphine twice today, which he typically gets for his colon cancer. The patient is also on Coumadin and currently taking an antibiotic for his rash. The history is limited due to the patient's mental status. The patient is non-verbal secondary to severe mental disabilities. Source of History: caregiver History Limited By: other (mental status) Onset: today Position: abdomen Quality: other (diarrhea) Timing: intermittent Associated Symptoms: + vomiting, No melena, No hematochezia Review of Systems ROS is limited secondary to the patient's mental status. Past Medical & Surgical Medical Problems: (1) Colon cancer (2) Mental retardation (3) Seizure disorder Surgical Problems: (1) S/P colectomy Family History Patient reports no known family medical history. Social History Smoking Status: Never Smoker Alcohol Use: none Drug Use: none Housing Status: other Occupation Status: disabled Current/Historical Medications Scheduled Calcium Carbonate-Cholecalcife (Caltrate 600+D), 2 TABS PO BID Calcium Polycarbophil (Fibercon), 1 CAP PO BID Carbamazepine (Tegretol), 200 MG PO BID Cholecalciferol (Vitamin D), 2,000 UNITS PO QAM Clindamycin Phosphate (Topical (Clindamycin Phosphate), 1 APPLN TOP QPM Docusate Sodium (Colace), 100 CAP PO BID Doxycycline Hyclate (Doxycycline Hyclate), 100 MG PO BID Lamotrigine (Lamictal), 200 MG PO TID Lamotrigine (Lamictal), 25 MG PO BID Levetiracetam (Keppra), 1,250 TAB PO QPM Levetiracetam (Keppra), 1,500 MG PO QAM Lorazepam (Ativan), 1 MG PO HS Lorazepam (Ativan), 0.5 MG PO DAILY Multivitamin (Multivitamin), 1 TAB PO QAM Olopatadine Hydrochloride (Pataday), 1 DROP OPB DAILY Risperidone (Risperdal), 2 MG PO QAM Risperidone (Risperdal), 1 MG PO HS Sennosides-Docusate Sodium (Docusate Sodium/Senna), 1 TAB PO BID Vitamin E (E-400), 400 UNITS BID Warfarin Sod (Coumadin), 4 MG PO 4XWK Warfarin Sodium (Coumadin), 2 MG PO 3XWK Zonisamide (Zonegran), 200 MG PO HS [Chemo], 1 DOSE INJ MONDAYS Scheduled PRN Lactulose (Chronulac), 15 ML PO BID PRN for NO BOWEL MOVEMENT IN 72 HRS Morphine Sulfate (Morphine Sulfate), 10 MG PO Q6H PRN for Pain Senna (Senokot), 2 TAB PO BID PRN for NO BOWEL MOVEMENT IN 48 HRS Allergies Coded Allergies: Ragweed (Verified Allergy, Mild, SEASONAL ALLERGY, 03/04/17) [place] Tree (Verified Allergy, Mild, SEASONAL ALLERGY, 03/04/17) Azithromycin (Verified Allergy, Unknown, INTERACTS WITH TEGRETOL LEVELS, ) Propranolol (Verified Allergy, Unknown, REACTION OF IMMOBILITY, 03/04/17) Physical Exam Vital Signs Date Time Temp Pulse Resp B/P (MAP) Pulse Ox O2 Delivery O2 Flow Rate FiO2 05/01/17 20:44 105 19 136/93 96 Room Air 05/01/17 19:23 105 05/01/17 19:05 37.9 108 16 127/94 95 Room Air Physical Exam Constitutional: Vital signs reviewed. Eyes: Pupils are equal round reactive to light. Conjunctiva are noninjected. ENT: Mucous membranes are dry. Neck supple without meningeal signs. Respiratory: Clear to auscultation bilaterally. Breath sounds are equal bilaterally. Cardiovascular: Tachycardic rate at 107 and regular rhythm. No rubs or gallops. GI: Soft, nondistended and nontender. Bowel sounds are present. Musculoskeletal: No peripheral edema. No lower extremity tenderness. Integumentary: No cyanosis. Neurological: The patient is awake and alert. No focal deficits. Psychiatric: Unable to assess. Medical Decision & Procedures Laboratory Results 05/01/17 19:30 Red Blood Count 4.38, Mean Corpuscular Volume 93.6, Mean Corpuscular Hemoglobin 32.0, Mean Corpuscular Hemoglobin Concent 34.1, Mean Platelet Volume 9.7, Neutrophils (%) (Auto) 53.9, Lymphocytes (%) (Auto) 28.5, Monocytes (%) (Auto) 15.3, Eosinophils (%) (Auto) 1.7, Basophils (%) (Auto) 0.6, Neutrophils # (Auto ) 1.91, Lymphocytes # (Auto) 1.01, Monocytes # (Auto) 0.54, Eosinophils # (Auto ) 0.06, Basophils # (Auto) 0.02 05/01/17 19:30 Test 05/01/17 19:30 White Blood Count 3.54 K/uL (4.8-10.8) Red Blood Count 4.38 M/uL (4.7-6.1) Hemoglobin 14.0 g/dL (14.0-18.0) Hematocrit 41.0 % (42-52) Mean Corpuscular Volume 93.6 fL (80-100) Mean Corpuscular Hemoglobin 32.0 pg (25-34) Mean Corpuscular Hemoglobin Concent 34.1 g/dl (32-36) Platelet Count 242 K/uL (130-400) Mean Platelet Volume 9.7 fL (7.4-10.4) Neutrophils (%) (Auto) 53.9 % Lymphocytes (%) (Auto) 28.5 % Monocytes (%) (Auto) 15.3 % Eosinophils (%) (Auto) 1.7 % Basophils (%) (Auto) 0.6 % Neutrophils # (Auto) 1.91 K/uL (1.4-6.5) Lymphocytes # (Auto) 1.01 K/uL (1.2-3.4) Monocytes # (Auto) 0.54 K/uL (0.11-0.59) Eosinophils # (Auto) 0.06 K/uL (0-0.5) Basophils # (Auto) 0.02 K/uL (0-0.2) RDW Standard Deviation 59.5 fL (36.4-46.3) RDW Coefficient of Variation 17.8 % (11.5-14.5) Immature Granulocyte % (Auto) 0.0 % Immature Granulocyte # (Auto) 0.00 K/uL (0.00-0.02) Anisocytosis PRESENT Anion Gap 9.0 mmol/L (3-11) Est Creatinine Clear Calc Drug Dose 66.9 ml/min Estimated GFR () 87.7 Estimated GFR (Non- 75.7 BUN/Creatinine Ratio 17.4 (10-20) Calcium Level 8.4 mg/dl (8.5-10.1) Total Bilirubin 0.4 mg/dl (0.2-1) Direct Bilirubin 0.2 mg/dl (0-0.2) Aspartate Amino Transf (AST/SGOT) 16 U/L (15-37) Alanine Aminotransferase (ALT/SGPT) 20 U/L (12-78) Alkaline Phosphatase 201 U/L (45-117) Total Protein 6.1 gm/dl (6.4-8.2) Albumin 3.0 gm/dl (3.4-5.0) Lipase 107 U/L (73-393) Laboratory results as reviewed by me. Medications Administered Medications (Trade) Dose Ordered Sig/Peyton Route Start Time Stop Time Status Last Admin Dose Admin Ondansetron HCl (Zofran Inj) 4 mg NOW STAT IV 05/01/17 19:18 05/01/17 19:20 DC 05/01/17 19:48 4 MG Sodium Chloride 1,000 ml @ 999 mls/hr Q1H1M STAT IV 05/01/17 19:18 05/01/17 20:18 DC 05/01/17 19:48 999 MLS/HR Potassium Chloride (Klor-Con M10) 40 meq NOW STAT PO 05/01/17 20:20 05/01/17 20:21 DC 05/01/17 20:40 40 MEQ Heparin Sodium (Porcine) (Heparin 100 Unit/ml 5ml Flush) 5 ml STK-MED ONCE .ROUTE 05/01/17 20:46 05/01/17 20:47 DC 05/01/17 20:54 5 ML ECG Indication: other (nursing protocol) Rate (beats per minute): 104 Rhythm: sinus tachycardia Findings: Q waves (in lead 3), RBBB (incomplete) Comparison ECG Date: 08/26/2016 Change: no significant change ED Course 1911: The patient was evaluated in room A10. A complete history and physical exam was performed. 1917: NSS 1000 ml @ 999 mls/hr IV, Zofran 4 mg IV 2019: I reassessed the patient and discussed his test results with his spinner fixer. She states that he seems to be perking up more now. 2019: Potassium Chloride 40 meq PO 2042: I reassessed the patient at this time. His c-diff was negative. I discussed the results and treatment plan with the patient's spinner fixer. I answered all pertaining questions that she had. She expressed understanding and verbalized agreement. The patient will be discharged home. She states that they have PRN nausea medication at the facility for him already so he does not need a prescription. Medical Decision This is a 56-year-old male who presents with vomiting and diarrhea. Differential diagnosis includes food borne illness, dehydration, electrolyte abnormality, gastroenteritis, C. difficile. I did perform a limited focused review of portions of the patient's old chart on the electronic medical record. The patient was here on the for bleeding from the mouth and his INR was 1.5 at that time. Medication Reconciliation: I attest that I have personally reviewed the patient' s current medication list. Blood Pressure Screening: Patient was found to have a slightly elevated blood pressure due to circumstances. I do not believe that the patient requires hypertension monitoring. I did evaluate the patient as noted above. I did obtain history from the patient and his spinner fixer as he is nonverbal. He is presenting with vomiting and diarrhea. He has no abdominal tenderness or fever. He has no hematochezia. I did treat patient with normal saline IV and Zofran IV. I did order and personally review the patient's C. difficile antigen testing which was negative. I did order and review the patient's blood work as noted in the electronic medical record. He does have leukopenia likely secondary from his chemotherapy. It is not significantly changed from his last blood test. His potassium is slightly low. I did give him K Dur. I did reassess the patient. His spinner fixer says that he appears to be more perky and better. He was discharged home. He does have when necessary nausea meds at the facility. They were advised follow with his doctor and given return instructions as outlined below. Impression Primary Impression: Vomiting and diarrhea Additional Impressions: Dehydration Hypokalemia Scribe Attestation The scribe's documentation has been prepared under my direct and personally reviewed by me in its entirety. I confirm that the note above accurately reflects all work, treatment, procedures, and medical decision making performed by me. Departure Information Dispostion Home / Self-Care Referrals Saundra Camarillo DO (PCP) Forms HOME CARE DOCUMENTATION FORM, IMPORTANT VISIT INFORMATION, WORK / SCHOOL INSTRUCTIONS Patient Instructions My [facility], Vomit Diarrhea Self Care Additional Instructions You have been examined and treated today on an emergency basis only. This is not a substitute for, or an effort to provide, complete comprehensive medical care. It is impossible to recognize and treat all injuries or illnesses in a single emergency department visit. It is therefore important that you follow up closely with your physician. Call as soon as possible for an appointment. Return for worsening symptoms or if you develop fever, signs of abdominal pain, rectal bleeding, or any other concerning symptoms. Problem Qualifiers
== END 2017-05-01 20:54 | disposition home or self-care (01) ==
LOC: EDBD 19:05 → C.EDA 19:07
DX: R11.10 Vomiting, unspecified (principal); R19.7 Diarrhea, unspecified; E86.0 Dehydration; E87.6 Hypokalemia; C18.9 Malignant neoplasm of colon, unspecified; F79 Unspecified intellectual disabilities; G40.909 Epilepsy, unspecified, not intractable, without status epilepticus; Z79.01 Long term (current) use of anticoagulants; Z51.81 Encounter for therapeutic drug level monitoring

== ENCOUNTER 2017-05-07 11:29 | Emergency (ER) | payer OTHER ==
[~2017-05-07] VITALS: Ht 167.6 cm; Wt 56.3 kg
[~2017-05-07 11:29] MED LIST changes: +CLIN1LOT5 TOP; +DOXY100T PO
[2017-05-07 11:35] VITALS: BP 102/76; Ht 167.6 cm; Wt 56.3 kg
[2017-05-07] MEDS ORDERED: SODIUM CHLORIDE 0.9% 1000ML 1,000 ML IV STA ×2 (13:40)
[2017-05-07] MEDS ORDERED: LEVE500T13 PO ×2 (13:54)
[2017-05-07] MEDS ORDERED: LORA-741 PO (13:54)
[2017-05-07] MEDS ORDERED: RISP1TAB68 PO (13:54)
[2017-05-07] MEDS ORDERED: ZONI100C2 PO (13:54)
[2017-05-07] MEDS ORDERED: CALC625T PO (13:54)
[2017-05-07] MEDS ORDERED: LAMO200T PO (13:54)
[2017-05-07] MEDS ORDERED: ATV/1 PO (13:54)
[2017-05-07] MEDS ORDERED: LAMO25TA PO (13:54)
[2017-05-07] MEDS ORDERED: RISP2TAB22 PO (13:54)
[2017-05-07] MEDS ORDERED: PTDOPS OP (13:54)
[2017-05-07] MEDS ORDERED: CARB200T3 PO (13:54)
[2017-05-07] MEDS ORDERED: DOCU-94 PO (13:54)
[2017-05-07 14:01] LABS: BASO % 0.3 %; BASO ABS # 0.01 K/uL (0-0.2); COMPLETE YES; EOS % 1.1 %; HEMATOCRIT 36.1 % (42-52); LYMPH % 30.6 %; MEAN CELL VOLUME 92.8 fL (80-100); MEAN CORPUSCULAR HEMOGLOBIN 31.4 pg (25-34); MEAN CORPUSCULAR HGB CONC 33.8 g/dl (32-36); MEAN PLATELET VOLUME 9.5 fL (7.4-10.4); MONO % 18.4 %; NEUT % 49.6 %; PLATELET COUNT 258 K/uL (130-400); RED BLOOD COUNT 3.89 M/uL (4.7-6.1); WHITE BLOOD COUNT 3.59 K/uL (4.8-10.8)
[2017-05-07] MEDS ORDERED: LACT10SO17 PO (14:01)
[2017-05-07] MEDS ORDERED: SENN1TAB77 PO (14:01)
[2017-05-07] MEDS ORDERED: MORP20SO PO (14:01)
[2017-05-07 14:25] LABS: ALB/GLOB RATIO 0.8 (0.9-2); BUN/CREATININE RATIO 11.7 (10-20); CALCIUM 8.4 mg/dl (8.5-10.1); CREATININE 0.72 mg/dl (0.60-1.40); POTASSIUM 2.5 mmol/L (3.5-5.1)
[2017-05-07] MEDS ORDERED: POTASSIUM CHLORIDE 10 MEQ TABCR PO STA (15:12)
[2017-05-07] MEDS ORDERED: POTASSIUM CHLORIDE 10 MEQ / 100ML WTR IV STA (15:16)
[2017-05-07 17:30] VITALS: PULSE 79; O2SAT 96
[2017-05-07] MEDS ORDERED: POTA10LI12 PO (17:45)
--- NOTE | 2017-05-07 20:53 | EMERGENCY ROOM VISIT NOTE ---
History Report prepared by Magalie: Vidal Lantigua Under the Supervision of: Dr. Ervin Castillo M.D. First contact with patient: 12:48 Chief Complaint: OTHER COMPLAINT Stated Complaint: AMS History of Present Illness The patient is a 56 year old male who presents to the Emergency Room via BLS with worsening altered mental status that started today. Per the patient's care givers, the patient is in the process of getting his hospice papers signed due to end stage cancer. The patient has had a lot of eye-rolling today, per the care givers, and the patient has not eaten much of anything for 5 days. The patient has been staring into space, and vomited after eating only a couple chips earlier today. He was brought here due to the vomiting and bit of altered mental status today. The patient will respond when his name is said, per the care givers. Per the care givers, the patient at his baseline is combative and attempts to bite himself and swing at staff at times. The patient has been combative today similar to baseline. The patient was recently seen here for vomiting and diarrhea, and tested out fine after hydration. Right now, the care givers say that the patient is comfortable. He is on Coumadin. Patient's care givers deny LOC, fevers, diaphoresis, breathing difficulties, melena, hematochezia, urinary symptoms, rash, or other complaints. History limited secondary to patient's altered mental status. Source of History: caregiver History Limited By: AMS Onset: Earlier today Position: other (global - altered mental status) Quality: other (lots of eye-rolling) Timing: worsening Associated Symptoms: + vomiting Note: Associated symptoms: Has not ate much of anything for 5 days. Review of Systems ROS unobtainable secondary to patient's altered mental status. Past Medical & Surgical Medical Problems: (1) Colon cancer (2) Mental retardation (3) Seizure disorder Surgical Problems: (1) S/P colectomy Family History Patient reports no known family medical history. Social History Smoking Status: Never Smoker Alcohol Use: none Drug Use: none Housing Status: other Occupation Status: disabled Current/Historical Medications Scheduled Calcium Polycarbophil (Fibercon), 625 MG PO BID Carbamazepine (Tegretol), 200 MG PO BID Docusate Sodium (Colace), 100 MG PO BID Lamotrigine (Lamictal), 25 MG PO BID Lamotrigine (Lamictal), 200 MG PO TID Levetiracetam (Keppra), 1,500 MG PO QAM Levetiracetam (Keppra), 1,250 MG PO QPM Lorazepam (Ativan), 0.5 MG PO DAILY Lorazepam (Ativan), 1 MG PO HS Olopatadine Hydrochloride (Pataday), 1 DROPS OP DAILY Potassium Chloride 40 Meq/15 Ml (Potassium Chloride 40 Meq/15 Ml), 15 ML PO DAILY Risperidone (Risperdal), 1 MG PO QPM Risperidone (Risperdal), 2 MG PO QAM Zonisamide (Zonegran), 200 MG PO QPM Scheduled PRN Lactulose (Chronulac), 15 ML PO BID PRN for Constipation Morphine Sulfate (Morphine Sulfate), 10 MG PO Q6 PRN for Pain Sennosides (Senokot), 17.2 MG PO BID PRN for Constipation Allergies Coded Allergies: Ragweed (Verified Allergy, Mild, SEASONAL ALLERGY, 03/04/17) [place] Tree (Verified Allergy, Mild, SEASONAL ALLERGY, 03/04/17) Azithromycin (Verified Allergy, Unknown, INTERACTS WITH TEGRETOL LEVELS, ) Propranolol (Verified Allergy, Unknown, REACTION OF IMMOBILITY, 03/04/17) Physical Exam Vital Signs Date Time Temp Pulse Resp B/P (MAP) Pulse Ox O2 Delivery O2 Flow Rate FiO2 05/07/17 17:30 79 16 96 Room Air 05/07/17 15:30 81 18 96 Room Air 05/07/17 13:46 96 Room Air 05/07/17 11:35 76 18 102/76 98 Room Air Physical Exam GENERAL: Awake, nonverbal, no acute distress. HENT: Normocephalic, atraumatic. Mucous membranes are dry. EYES: Normal conjunctiva. Sclera non-icteric. NECK: Supple. No nuchal rigidity. FROM. No JVD. RESPIRATORY: Clear to auscultation. CARDIAC: Regular rate, normal rhythm. Extremities warm and well perfused. Pulses equal. ABDOMEN: Soft, non-distended. No tenderness to palpation. No rebound or guarding. No masses. RECTAL: Deferred. MUSCULOSKELETAL: Atrophy. Chest examination reveals no tenderness. The back is symmetrical on inspection without obvious abnormality. There is no CVA tenderness to palpation. No joint edema. LOWER EXTREMITIES: Calves are equal size bilaterally and non-tender. No edema. No discoloration. NEURO: MR sensorium. Following basic commands. SKIN: No rash or jaundice noted. Medical Decision & Procedures Laboratory Results 05/07/17 13:41 Red Blood Count 3.89, Mean Corpuscular Volume 92.8, Mean Corpuscular Hemoglobin 31.4, Mean Corpuscular Hemoglobin Concent 33.8, Mean Platelet Volume 9.5, Neutrophils (%) (Auto) 49.6, Lymphocytes (%) (Auto) 30.6, Monocytes (%) (Auto) 18.4, Eosinophils (%) (Auto) 1.1, Basophils (%) (Auto) 0.3, Neutrophils # (Auto ) 1.78, Lymphocytes # (Auto) 1.10, Monocytes # (Auto) 0.66, Eosinophils # (Auto ) 0.04, Basophils # (Auto) 0.01 05/07/17 13:41 Test 05/07/17 13:41 White Blood Count 3.59 K/uL (4.8-10.8) Red Blood Count 3.89 M/uL (4.7-6.1) Hemoglobin 12.2 g/dL (14.0-18.0) Hematocrit 36.1 % (42-52) Mean Corpuscular Volume 92.8 fL (80-100) Mean Corpuscular Hemoglobin 31.4 pg (25-34) Mean Corpuscular Hemoglobin Concent 33.8 g/dl (32-36) Platelet Count 258 K/uL (130-400) Mean Platelet Volume 9.5 fL (7.4-10.4) Neutrophils (%) (Auto) 49.6 % Lymphocytes (%) (Auto) 30.6 % Monocytes (%) (Auto) 18.4 % Eosinophils (%) (Auto) 1.1 % Basophils (%) (Auto) 0.3 % Neutrophils # (Auto) 1.78 K/uL (1.4-6.5) Lymphocytes # (Auto) 1.10 K/uL (1.2-3.4) Monocytes # (Auto) 0.66 K/uL (0.11-0.59) Eosinophils # (Auto) 0.04 K/uL (0-0.5) Basophils # (Auto) 0.01 K/uL (0-0.2) RDW Standard Deviation 63.1 fL (36.4-46.3) RDW Coefficient of Variation 19.0 % (11.5-14.5) Immature Granulocyte % (Auto) 0.0 % Immature Granulocyte # (Auto) 0.00 K/uL (0.00-0.02) Anion Gap 10.0 mmol/L (3-11) Est Creatinine Clear Calc Drug Dose 93.4 ml/min Estimated GFR () 122.6 Estimated GFR (Non- 105.8 BUN/Creatinine Ratio 11.7 (10-20) Calcium Level 8.4 mg/dl (8.5-10.1) Total Bilirubin 0.4 mg/dl (0.2-1) Aspartate Amino Transf (AST/SGOT) 13 U/L (15-37) Alanine Aminotransferase (ALT/SGPT) 17 U/L (12-78) Alkaline Phosphatase 174 U/L (45-117) Total Protein 5.9 gm/dl (6.4-8.2) Albumin 2.7 gm/dl (3.4-5.0) Globulin 3.2 gm/dl (2.5-4.0) Albumin/Globulin Ratio 0.8 (0.9-2) Laboratory results reviewed by me Medications Administered Medications (Trade) Dose Ordered Sig/Peyton Route Start Time Stop Time Status Last Admin Dose Admin Sodium Chloride 1,000 ml @ 999 mls/hr Q1H1M STAT IV 05/07/17 13:40 05/07/17 14:40 DC 05/07/17 13:40 999 MLS/HR Sodium Chloride 1,000 ml @ 200 mls/hr Q5H STAT IV 05/07/17 13:40 05/07/17 18:39 DC 05/07/17 13:40 200 MLS/HR Potassium Chloride (Kcl 10 Meq / Wtr) 10 meq NOW STAT IV 05/07/17 15:16 05/07/17 15:17 DC 05/07/17 15:25 10 MEQ Heparin Sodium (Porcine) (Heparin 100 Unit/ml 5ml Flush) 5 ml STK-MED ONCE .ROUTE 05/07/17 17:34 05/07/17 17:35 DC 05/07/17 17:34 5 ML ED Course 1257: The patient was evaluated in room B9. A limited history and physical exam was performed. 1340: Ordered NSS 1000 ml @ 200 mls/hr IV, NSS 1000 ml @ 999 mls/hr IV. 1512: Ordered Klor-Con M10 40 meq PO. 1516: Ordered Kcl 10 Meq / Wtr 10 meq IV. 1540: I reevaluated the patient and he is getting IV potassium. I will touch base with family to see if it is okay to keep the patient in the hospital to treat his hypokalemia. 1622: I discussed the patient with Jennifer Brito - she will evaluate the1 patient for further treatment. 1700: I talked to the patient's father, and he is okay with the patient staying here in the hospital. 1723: I talked to the patient's mother. She does not want the patient to be kept in the hospital, as the patient has hospice fully in place. The mother wants the patient to be discharge home, and to have him take oral medication. Being kept in the hospital would make the patient extremely agitated and would be upsetting to the patient. I discussed the risks and benefits at length with the patient's mother and she understands. The patient will be discharged home. Medical Decision Medication Reconciliation: I attest that I have personally reviewed the patient' s current medication list Blood pressure screening: Patient was found to have normal blood pressure on screening and does not require follow-up. Triage Nursing notes reviewed. The patient's presentation and history were concerning for change in mental status. Prior records reviewed. Etiologies such as metabolic, infection, hypo/hyperglycemia, electrolyte abnormalities, cardiac sources, intracerebral event, toxicologic, neurologic, as well as others were entertained. The patient was evaluated. He appeared to be at his baseline per his caregivers who know him well. They were concerned because he had decreased by mouth intake and had some vomiting. He is scheduled to be placed on hospice and this should have already started although there was some administrative issues with the paperwork. Because of this they had to bring the patient to the Emergency Room for evaluation. I did discuss the issues with them. The family was contacted and did give permission for IV fluids. He was hydrated. He was given IV potassium. He is not taking oral intake very well and further IV potassium was felt to be reasonable. Initially the patient's mother refused. I did discuss the case with the patient's father after we were unable to get in touch the patient's mother. He felt that would be reasonable to have the patient stay overnight. I did discuss case with the [facility] [address] hospitalist. The patient's mother then called back and I was able to speak with her. She does not want him to be admitted to the hospital. She feels it is very stressful for him. Hospice is fully engaged at this point. All of the administrative issues were cleared today. Case management verified. The patient had received his full IV dose of potassium here. I did discuss the risks and benefits and the mother was clear on this. She prefers the patient the back at his [facility] and treated through hospice. I did recommend oral potassium and did write a prescription. I encouraged the caregivers and mother to have the patient come back to the emergency department as necessary but to follow up closely with the outpatient providers. I gave my usual and customary discussion regarding this issue. The patient's CBC was unremarkable. Remainder of chemistry panel was unremarkable. Return instructions were outlined and the patient was discharged. Consults Time Called: 1618 Consulting Physician: Jennifer Brito Returned Call: 1622 I discussed the patient with Jennifer Brito - she will evaluate the patient for further treatment. Impression Primary Impression: Hypokalemia Additional Impression: Vomiting Scribe Attestation The scribe's documentation has been prepared under my direction and personally reviewed by me in its entirety. I confirm that the note above accurately reflects all work, treatment, procedures, and medical decision making performed by me. Departure Information Dispostion Home / Self-Care Prescriptions Potassium Chloride 40 Meq/15 Ml (POTASSIUM CHLORIDE 40 MEQ/15 ML) 20 % Liq 15 ML PO DAILY for 5 Days, #75 ML Prov: Ervin Castillo MD 05/07/17 Referrals Saundra Camarillo DO (PCP) Forms HOME CARE DOCUMENTATION FORM, IMPORTANT VISIT INFORMATION, WORK / SCHOOL INSTRUCTIONS Patient Instructions My [facility] Additional Instructions Potassium liquid 15 mL daily for 5 days. Continue current medications. Hospice care as directed. Return to the emergency Department for any problems. Contact the patient's primary physician tomorrow for further direction. Problem Qualifiers
== END 2017-05-07 17:55 | disposition home or self-care (01) ==
LOC: EDBD 11:29 → C.EDB 11:31
DX: E87.6 Hypokalemia (principal); R11.10 Vomiting, unspecified; R41.82 Altered mental status, unspecified; C18.9 Malignant neoplasm of colon, unspecified; G40.909 Epilepsy, unspecified, not intractable, without status epilepticus; Z79.01 Long term (current) use of anticoagulants